=== PATIENT | female | born 1985 | race Two or more races ===

== ENCOUNTER 2019-08-01 10:55 | Emergency (ER) | payer MEDICAID, OTHER ==
[~2019-08-01] VITALS: Ht 167.6 cm; Wt 74.8 kg
[2019-08-01 11:06] VITALS: BP 115/81
[2019-08-01] MEDS ORDERED: TETANUS-DIPTH-ACEL PERTUSSIS 0.5ML SYR Tdap IM ONE (11:45)
[2019-08-01] MEDS ORDERED: LIDOCAINE 1% HCL (LOCAL ANESTH.) INJ 20ML MDV IJ ONE (11:45)
[2019-08-01] MEDS ORDERED: ACETAMINOPHEN 325 MG TAB PO ONE (12:15)
== END 2019-08-01 12:41 | disposition home or self-care (01) ==
LOC: ER 10:55 → EDBD 10:55 → ER 12:41
DX: S01.81XA Laceration without foreign body of other part of head, initial encounter (principal); S01.01XA Laceration without foreign body of scalp, initial encounter; V43.52XA Car driver injured in collision with other type car in traffic accident, initial encounter; Y93.89 Activity, other specified; Y92.488 Other paved roadways as the place of occurrence of the external cause; Y99.8 Other external cause status
CPT/HCPCS: 12002; 12015; 70450; 90471; 90715; 99284; J2001; 12014; 12016

== ENCOUNTER 2019-08-03 12:47 | Emergency (ER) | payer MEDICAID ==
[~2019-08-03] VITALS: Ht 162.6 cm; Wt 69.4 kg
[2019-08-03 13:13] VITALS: BP 119/75
== END 2019-08-03 13:54 | disposition home or self-care (01) ==
LOC: ER 12:47
DX: S01.81XA Laceration without foreign body of other part of head, initial encounter (principal); S01.01XD Laceration without foreign body of scalp, subsequent encounter; X58.XXXD Exposure to other specified factors, subsequent encounter

== ENCOUNTER 2021-02-04 12:35 | Emergency (ER) | payer MEDICAID ==
[~2021-02-04] VITALS: Ht 162.6 cm; Wt 69.4 kg
[2021-02-04 13:30] VITALS: BP 130/80
[2021-02-04 14:08] LABS: Basophils # (auto) 0.1 10 ^3/uL (0-0.2); Basophils % (auto) 0.7 % (0.0-2.0); Eosinophils # (auto) 0.1 10 ^3/uL (0-0.8); Eosinophils % (auto) 0.8 % (0.0-7.0); Hematocrit 39.4 % (36.0-46.0); Hemoglobin 13.3 g/dL (12.2-16.2); Lymphocytes # (auto) 1.3 10 ^3/uL (0.4-5.4); Lymphocytes % (auto) 18.7 % (10.0-50.0); Mean Corpuscular Hemoglobin 31.5 pg (28.0-32.0); Mean Corpuscular Hgb Conc. 33.6 g/dL (32.0-36.0); Mean Corpuscular Volume 93.5 fL (80.0-100.0); Monocytes # (auto) 0.5 10 ^3/uL (0-1.3); Monocytes % (auto) 7.4 % (0.0-12.0); Neutrophils # (auto) 5.2 10 ^3/uL (1.6-8.6); Neutrophils % (auto) 72.4 % (37.0-80.0); Red Blood Cells 4.22 10^6/uL (4.0-5.20); Red Cell Distribution Width 13.7 % (11.8-14.3); White Blood Cell 7.2 10^3/uL (4.4-10.8)
[2021-02-04 14:33] LABS: Calcium 9.2 mg/dL (8.5-10.1); Potassium 3.9 mmol/L (3.5-5.1)
[2021-02-04 14:46] LABS: BUN/Creatinine Ratio 12.1
== END 2021-02-04 15:37 | disposition home or self-care (01) ==
LOC: ER 12:35
DX: F41.8 Other specified anxiety disorders (principal); R42 Dizziness and giddiness; R51.9 Headache, unspecified; R20.2 Paresthesia of skin; E03.9 Hypothyroidism, unspecified
CPT/HCPCS: 36415; 80048; 84443; 84484; 85025

== ENCOUNTER 2021-03-27 15:51 | Emergency (ER) | payer MEDICAID ==
[~2021-03-27] VITALS: Ht 162.6 cm; Wt 67.1 kg
[2021-03-27 16:06] VITALS: BP 122/69
[2021-03-27 16:28] LABS: Basophils # (auto) 0.1 10 ^3/uL (0-0.2); Basophils % (auto) 0.7 % (0.0-2.0); Eosinophils # (auto) 0.1 10 ^3/uL (0-0.8); Eosinophils % (auto) 1.5 % (0.0-7.0); Hematocrit 39.9 % (36.0-46.0); Hemoglobin 13.1 g/dL (12.2-16.2); Lymphocytes % (auto) 30.2 % (10.0-50.0); Mean Corpuscular Hemoglobin 29.6 pg (28.0-32.0); Mean Corpuscular Hgb Conc. 32.7 g/dL (32.0-36.0); Mean Corpuscular Volume 90.5 fL (80.0-100.0); Monocytes # (auto) 0.7 10 ^3/uL (0-1.3); Monocytes % (auto) 6.6 % (0.0-12.0); Neutrophils # (auto) 6.1 10 ^3/uL (1.6-8.6); Nucleated Red Blood Cells % 1.4 %; Red Blood Cells 4.41 10^6/uL (4.0-5.20); Red Cell Distribution Width 13.8 % (11.8-14.3)
[2021-03-27 16:45] LABS: Albumin 3.9 g/dL (3.4-5.0); Calcium 9.1 mg/dL (8.5-10.1)
[2021-03-27 16:52] LABS: BUN/Creatinine Ratio 16.7; Bilirubin, Total 0.2 mg/dL (0.2-1.0); Total Protein 8.1 g/dL (6.4-8.2)
== END 2021-03-27 17:57 | disposition home or self-care (01) ==
LOC: ER 15:51
DX: R07.89 Other chest pain (principal); F41.8 Other specified anxiety disorders; E78.5 Hyperlipidemia, unspecified; E03.9 Hypothyroidism, unspecified; F17.210 Nicotine dependence, cigarettes, uncomplicated
CPT/HCPCS: 36415; 80053; 84443; 84484; 85025; 93005

== ENCOUNTER 2021-07-13 12:49 | Emergency (ER) | payer SELFPAY ==
[~2021-07-13] VITALS: Ht 162.6 cm; Wt 72.6 kg
[2021-07-13 15:57] VITALS: BP 115/67
== END 2021-07-13 16:12 | disposition home or self-care (01) ==
LOC: ER 12:49
DX: S83.91XA Sprain of unspecified site of right knee, initial encounter (principal); F17.210 Nicotine dependence, cigarettes, uncomplicated; X58.XXXA Exposure to other specified factors, initial encounter; Y93.89 Activity, other specified; Y92.89 Other specified places as the place of occurrence of the external cause; Y99.8 Other external cause status
CPT/HCPCS: 73562

== ENCOUNTER 2022-01-03 11:06 | Emergency (ER) | payer MEDICAID ==
[~2022-01-03] VITALS: Ht 162.6 cm; Wt 83.9 kg
[2022-01-03] MEDS ORDERED: LORazepam 2MG/ML-1ML VIAL IV ONE (12:30)
[2022-01-03] MEDS ORDERED: SODIUM CHLORIDE 0.9% 1,000 ML IV ONE (12:30)
[2022-01-03 12:43] LABS: Basophils # (auto) 0.1 10 ^3/uL (0-0.2); Eosinophils # (auto) 0.1 10 ^3/uL (0-0.8); Mean Corpuscular Hemoglobin 26.3 pg (28.0-32.0); Monocytes # (auto) 0.5 10 ^3/uL (0-1.3); Neutrophils # (auto) 4.3 10 ^3/uL (1.6-8.6)
[2022-01-03 12:48] LABS: Basophils % (auto) 0.7 % (0.0-2.0); Eosinophils % (auto) 1.9 % (0.0-7.0); Hematocrit 26.5 % (36.0-46.0); Hemoglobin 8.4 g/dL (12.2-16.2); Lymphocytes # (auto) 2.5 10 ^3/uL (0.4-5.4); Lymphocytes % (auto) 33.2 % (10.0-50.0); Mean Corpuscular Hgb Conc. 31.9 g/dL (32.0-36.0); Mean Corpuscular Volume 82.5 fL (80.0-100.0); Monocytes % (auto) 6.7 % (0.0-12.0); Neutrophils % (auto) 57.5 % (37.0-80.0); Nucleated Red Blood Cells % 0.1 %; Red Blood Cells 3.21 10^6/uL (4.0-5.20); Red Cell Distribution Width 16.2 % (11.8-14.3); White Blood Cell 7.4 10^3/uL (4.4-10.8)
[2022-01-03 13:03] LABS: Albumin 3.7 g/dL (3.4-5.0); Calcium 8.5 mg/dL (8.5-10.1); Potassium 4.7 mmol/L (3.5-5.1)
[2022-01-03 13:05] LABS: Alcohol, Urine < 3.0 mg/dL (0-10); Amphetamine Screen, Urine NEGATIVE (NEGATIVE); Barbiturate Scree,Urine NEGATIVE (NEGATIVE); Benzodiazephine Screen, Urine POSITIVE (NEGATIVE); Cannabinoid Screen, Urine NEGATIVE (NEGATIVE); Cocaine Screen, Urine NEGATIVE (NEGATIVE); Opiate Scree,Urine NEGATIVE (NEGATIVE); Phencyclidine Screen, Urine NEGATIVE (NEGATIVE)
[2022-01-03 13:06] LABS: BUN/Creatinine Ratio 18.9
[2022-01-03 13:10] LABS: Bilirubin, Total 0.2 mg/dL (0.2-1.0); Total Protein 7.2 g/dL (6.4-8.2)
[2022-01-03 13:21] LABS: Urine Bacteria NONE SEEN /hpf (None Seen); Urine Blood 3+ /uL (Negative); Urine Specific Gravity 1.021 (1.001-1.035); Urine WBC 1 /hpf (0 - 5)
[2022-01-03] MEDS ORDERED: NITR-87 PO (13:54)
[2022-01-03 17:30] VITALS: BP 125/66
== END 2022-01-03 17:34 | disposition home or self-care (01) ==
LOC: ER 11:06
DX: R42 Dizziness and giddiness (principal); N39.0 Urinary tract infection, site not specified; F41.9 Anxiety disorder, unspecified
CPT/HCPCS: 36415; 80053; 80307; 81001; 81025; 85025

== ENCOUNTER 2022-04-10 09:08 | Emergency (ER) | payer MEDICAID ==
[~2022-04-10] VITALS: Ht 162.6 cm; Wt 88.0 kg
[~2022-04-10 09:08] MED LIST: NITR-87 PO
[2022-04-10] MEDS ORDERED: HYDR-4902 PO (09:42)
[2022-04-10] MEDS ORDERED: LIDOCAINE 1% HCL (LOCAL ANESTH.) INJ 20ML MDV IJ ONE (09:45)
[2022-04-10] MEDS ORDERED: MORPHINE SULFATE 4 MG/ML SYR/VIAL IM ONE (09:45)
[2022-04-10] MEDS ORDERED: ONDANSETRON ODT 4 MG TAB PO ONE (09:45)
[2022-04-10] MEDS ORDERED: IBUPROFEN 600 MG TAB PO ONE (11:00)
[2022-04-10] MEDS ORDERED: CYCL-839 PO (11:40)
[2022-04-10] MEDS ORDERED: IBUP600T28 PO (11:40)
[2022-04-10 11:49] VITALS: BP 123/70
== END 2022-04-10 12:21 | disposition home or self-care (01) ==
LOC: ER 09:08
DX: S62.102A Fracture of unspecified carpal bone, left wrist, initial encounter for closed fracture (principal); F17.210 Nicotine dependence, cigarettes, uncomplicated; W18.39XA Other fall on same level, initial encounter; Y93.89 Activity, other specified; Y92.89 Other specified places as the place of occurrence of the external cause; Y99.8 Other external cause status
CPT/HCPCS: 29125; 73100; 73110; 96372; 99283; J2001; Q0162

== ENCOUNTER 2022-04-12 09:47 | Emergency (ER) | payer MEDICAID ==
[~2022-04-12] VITALS: Ht 162.6 cm; Wt 86.5 kg
[~2022-04-12 09:47] MED LIST changes: +CYCL-839 PO; +IBUP600T28 PO
[2022-04-12 11:32] VITALS: BP 103/43
[2022-04-12] MEDS ORDERED: HYDROcodone-ACET 5/325MG TAB PO ONE (12:30)
== END 2022-04-12 13:05 | disposition home or self-care (01) ==
LOC: ER 09:47
DX: M25.532 Pain in left wrist (principal); F17.210 Nicotine dependence, cigarettes, uncomplicated; Z88.6 Allergy status to analgesic agent

== ENCOUNTER 2023-07-11 21:05 | Inpatient (IN) | payer MEDICAID ==
[~2023-07-11] VITALS: Ht 162.6 cm; Wt 83.9 kg
[~2023-07-11 21:05] MED LIST changes: +IBUP1TAB5 PO; -IBUP600T28 PO
[2023-07-11] MEDS ORDERED: LIDOCAINE 2%HCL (LOCAL ANESTH.) INJ 20ML MDV IJ PRN (21:15)
[2023-07-11] MEDS ORDERED: miSOPROStol 100 mcg TAB SL PRN (21:15)
[2023-07-11] MEDS ORDERED: miSOPROStol 100 mcg TAB PR PRN (21:15)
[2023-07-11] MEDS ORDERED: CARBOPROST TROMETHAMINE 250 MCG/1ML VIAL IM PRN (21:15)
[2023-07-11] MEDS ORDERED: MORPHINE SULFATE INJ 2 MG/ml SYRG IV PRN (21:15)
[2023-07-11] MEDS ORDERED: ONDANSETRON HCL 4 MG/2 ML VIAL IV PRN (21:15)
[2023-07-11] MEDS ORDERED: NITROGLYCERIN 0.4 MG SL TAB SL PRN (21:15)
[2023-07-11] MEDS ORDERED: BUTORPHANOL TARTRATE 2 MG/1 ML VIAL IV PRN ×2 (21:15)
[2023-07-11 21:58] LABS: Basophils # (auto) 0.1 10 ^3/uL (0-0.2); Basophils % (auto) 0.6 % (0.0-2.0); Eosinophils # (auto) 0 10 ^3/uL (0-0.8); Eosinophils % (auto) 0.4 % (0.0-7.0); Hematocrit 31.5 % (36.0-46.0); Hemoglobin 9.7 g/dL (12.2-16.2); Lymphocytes # (auto) 2.7 10 ^3/uL (0.4-5.4); Lymphocytes % (auto) 30.8 % (10.0-50.0); Mean Corpuscular Hemoglobin 23.5 pg (28.0-32.0); Mean Corpuscular Volume 75.9 fL (80.0-100.0); Monocytes # (auto) 0.5 10 ^3/uL (0-1.3); Monocytes % (auto) 5.4 % (0.0-12.0); Neutrophils # (auto) 5.5 10 ^3/uL (1.6-8.6); Neutrophils % (auto) 62.8 % (37.0-80.0); Nucleated Red Blood Cells % 0.1 %; Red Blood Cells 4.15 10^6/uL (4.0-5.20); Red Cell Distribution Width 17.9 % (11.8-14.3); White Blood Cell 8.8 10^3/uL (4.4-10.8)
[2023-07-11 22:10] LABS: Urine Bacteria FEW /hpf (None Seen); Urine Blood Negative /uL (Negative); Urine Clarity Clear (Clear); Urine Color Colorless (Yellow); Urine Protein, UAD Negative (Negative); Urine Specific Gravity 1.004 (1.001-1.035); Urine Urobilinogen Normal (Negative); Urine WBC 1 /hpf (0 - 5); Urine pH 5.5 (5.0-9.0)
[2023-07-11] MEDS ORDERED: LACTATED RINGER'S 1,000 ML IV ONE (22:15)
[2023-07-11 22:18] LABS: Alanine Aminotransferase 13 U/L (7-40); Alkaline Phosphatase 161 U/L (46-116); Anion Gap 7 (5-15); Aspartate Aminotransferase 23 U/L (13-40); BUN/Creatinine Ratio 10.3 (10.0-20.0); Blood Urea Nitrogen 6 mg/dL (9-23); Carbon Dioxide 21 mmol/L (20-30); Chloride 109 mmol/L (98-107); Glucose 80 mg/dL (74-106); Potassium 3.7 mmol/L (3.5-5.1); Sodium 137 mmol/L (136-145)
[2023-07-11 22:19] LABS: Bilirubin, Total 0.5 mg/dL (0.2-1.0); INR 0.95 (0.9-1.15); Partial Thromboplastin Time 24.4 SEC (24.5-34.5); Total Protein 6.7 g/dL (5.7-8.2)
[2023-07-11] MEDS: LACTATED RINGER'S 1,000 ML IV SCH (22:19)
[2023-07-11] MEDS: DERMOPLAST 60ML BOTTLE TOP PRN (22:20)
[2023-07-11] MEDS: WITCH HAZEL-GLYCERIN PAD TOP PRN (22:20)
[2023-07-11] MEDS: PHISODERM TOP SOLN 240ML BTL TOP PRN (22:20)
[2023-07-11 22:21] LABS: Amphetamine Screen, Urine Neg (NEGATIVE)
[2023-07-11] MEDS: miSOPROStol 50 MCG per PRE-CUT 1/2 TAB PO PRN (22:21)
[2023-07-11 22:22] LABS: Barbiturate Scree,Urine Neg (NEGATIVE); Benzodiazephine Screen, Urine Neg (NEGATIVE); Cannabinoid Screen, Urine Neg (NEGATIVE); Cocaine Screen, Urine Neg (NEGATIVE); Opiate Scree,Urine Neg (NEGATIVE); Phencyclidine Screen, Urine Neg (NEGATIVE)
[2023-07-12] MEDS ORDERED: TERBUTALINE SULFATE 1 MG/ML 1ML VIAL SC PRN (00:30)
[2023-07-12 01:19] LABS: Protein, Urine < 6.0 mg/dL (0.0-11.9)
[2023-07-12 01:21] LABS: Creatinine, Urine 26.52 mg/dL (30.0-125.0); Urine Protein/Creatinine Ratio 0.23
[2023-07-12] MEDS: TERBUTALINE SULFATE 1 MG/ML 1ML VIAL SC ONE (02:43)
[2023-07-12] MEDS: LACTATED RINGER'S 1,000 ML IV ONE (02:44)
[2023-07-12] MEDS: ROPIVACAINE HCL 200 ML ONE (02:45)
[2023-07-12] MEDS: ePHEDrine SULFATE 50 MG/ML AMP IV ONE (03:22)
[2023-07-12] MEDS: LACT. RINGERS/OXYTOCIN 20UNITS 1,000 ML IV SCH (04:50)
[2023-07-12] MEDS ORDERED: DIPHENOXYLATE W/ATROPINE 2.5 MG TAB PO PRN (06:00)
[2023-07-12] MEDS: METHYLERGONOVINE MALEATE 0.2 MG/ML AMP IM PRN (07:27)
[2023-07-12] MEDS: LACT. RINGERS/OXYTOCIN 20UNITS 500 ML IV ONE ×2 (07:28→07:55)
[2023-07-12] MEDS ORDERED: ACETAMINOPHEN 325 MG TAB PO PRN (07:45)
[2023-07-12] MEDS ORDERED: ONDANSETRON ODT 4 MG TAB PO PRN (07:45)
[2023-07-12] MEDS: ceFAZolin 2 GM/D5W50ml 50 ML IV ONE (07:47)
[2023-07-12] MEDS: IBUPROFEN 600 MG TAB PO PRN (10:16)
[2023-07-12 10:30] VITALS: PULSE 71; RESP 18
[2023-07-12 11:07] VITALS: BP 109/51; PULSE 94; RESP 18; TEMP 98.1; O2SAT 96
[2023-07-12 15:10] VITALS: BP 93/51; PULSE 72; RESP 15; TEMP 98.1; O2SAT 96
[2023-07-12] MEDS: ceFAZolin 1GM/50ML 50 ML IV SCH (16:23)
[2023-07-12] MEDS ORDERED: PREN-96 PO (16:26)
[2023-07-12] MEDS ORDERED: ASCO500T11 PO (16:26)
[2023-07-12] MEDS ORDERED: IBU600T PO (16:26)
[2023-07-12] MEDS ORDERED: DOCU-94 PO (16:26)
[2023-07-12] MEDS ORDERED: FER325T PO (16:26)
[2023-07-12 18:28] VITALS: BP 98/57; PULSE 67; RESP 16; TEMP 98.4; O2SAT 98
[2023-07-12 19:03] VITALS: TEMP 98.4
[2023-07-12 23:00] VITALS: BP 101/66; PULSE 80; RESP 18; TEMP 98.1; O2SAT 100
[2023-07-13 03:00] VITALS: BP 91/51; PULSE 69; RESP 18; TEMP 97.8; O2SAT 100
[2023-07-13 06:24] LABS: Basophils # (auto) 0 10 ^3/uL (0-0.2); Eosinophils # (auto) 0.1 10 ^3/uL (0-0.8); Lymphocytes # (auto) 2.2 10 ^3/uL (0.4-5.4); Mean Corpuscular Hemoglobin 24.2 pg (28.0-32.0); Monocytes # (auto) 0.5 10 ^3/uL (0-1.3); Red Cell Distribution Width 18.2 % (11.8-14.3)
[2023-07-13 06:26] LABS: Basophils % (auto) 0.3 % (0.0-2.0); Eosinophils % (auto) 0.7 % (0.0-7.0); Hematocrit 29.3 % (36.0-46.0); Hemoglobin 9.1 g/dL (12.2-16.2); Lymphocytes % (auto) 25.6 % (10.0-50.0); Mean Corpuscular Hgb Conc. 31.1 g/dL (32.0-36.0); Mean Corpuscular Volume 77.8 fL (80.0-100.0); Monocytes % (auto) 6.2 % (0.0-12.0); Neutrophils # (auto) 5.8 10 ^3/uL (1.6-8.6); Neutrophils % (auto) 67.2 % (37.0-80.0); Red Blood Cells 3.76 10^6/uL (4.0-5.20); White Blood Cell 8.6 10^3/uL (4.4-10.8)
[2023-07-13 07:00] VITALS: BP 90/52; PULSE 75; RESP 16; TEMP 97.7; O2SAT 97
[2023-07-13 08:06] LABS: RPR Non Reactive (Non Reactive)
[2023-07-13 11:00] VITALS: BP 100/68; PULSE 73; RESP 16; TEMP 98.6; O2SAT 97
[2023-07-13 13:11] VITALS: BP 102/64; PULSE 75; RESP 16; TEMP 97.8; O2SAT 98
[2023-07-17 19:06] LABS: Treponema pallidum Ab (FTA-Ab) Non Reactive (Non Reactive)
== END 2023-07-13 13:11 | disposition home or self-care (01) | DRG 560 ==
LOC: UNDOADMIN 21:05 → LDRP 21:05
PROVIDERS: ADMIT Obstetrics & Gynecology; ATTEND Obstetrics & Gynecology
PROC: 10E0XZZ Delivery of Products of Conception, External Approach (ICD-10-PCS; principal; 2023-07-12)
PROC: 3E033VJ Introduction of Other Hormone into Peripheral Vein, Percutaneous Approach (ICD-10-PCS; 2023-07-12)
PROC: 3E0R3BZ Introduction of Anesthetic Agent into Spinal Canal, Percutaneous Approach (ICD-10-PCS; 2023-07-12)
PROC: 00HU33Z Insertion of Infusion Device into Spinal Canal, Percutaneous Approach (ICD-10-PCS; 2023-07-12)
DX: O26.643 Intrahepatic cholestasis of pregnancy, third trimester (principal); Z37.0 Single live birth; D50.9 Iron deficiency anemia, unspecified; Z3A.37 37 weeks gestation of pregnancy; O76 Abnormality in fetal heart rate and rhythm complicating labor and delivery; O99.02 Anemia complicating childbirth
CPT/HCPCS: 36415; 59025; 59200; 59409; 62282; 80053; 80307; 81001; 82570; 84156; 84550; 85025; 85610; 85730; 86592; 86850; 86900; 86901; 87086; 94760; 94762; 96360; 96361; 96365; 96366; 96372; 96374; 96375; G0378; J2590

== ENCOUNTER 2024-11-29 07:10 | Emergency (ER) | payer MEDICAID ==
[~2024-11-29] VITALS: Ht 162.6 cm; Wt 68.3 kg
[~2024-11-29 07:10] MED LIST changes: +ASCO500T11 PO; -CYCL-839 PO; +DOCU-94 PO; +FER325T PO; +IBU600T PO; -IBUP1TAB5 PO; -NITR-87 PO; +PREN-96 PO
[2024-11-29 07:13] VITALS: BP 101/70; RESP 16; TEMP 97.7; O2SAT 98
--- NOTE | 2024-11-29 07:30 | ED.PDOC ---
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 PT HAD PILL 3 WEEKS AGO AND SHE STARTED HAVING VAGINAL BLEEDING WITH INCREASING BETA-HCG 3 DAYS AGO. PT WAS IN THIS ER 2 DAYS AGO FOR CHECK UP HER DUE TO HER BETA-HCG INCREASED. PT HAD BLOOD TEST AND OB US TEST. I CONSULTED ABOUT PATIENT'S BLOOD TEST AND US REPORTS. PT WAS GIVEN AN PILL CYTOTEC 800MCG BY AND INSTRUCTED PT TO F/U ER TODAY FOR RECHECK BETA-HCG TEST. PT STATES SHE TOOK THE PILLS AND STARTED VAGINAL BLEEDING AND PASSED TISSUE YESTERDAY AND STOPPED TODAY. PATIENT HAS NO FURTHER COMPLAINTS AT THIS TIME AND OTHERWISE DENIES SOB, CHEST PAIN, VAGINAL BLEEDING, N/V, FEVER, CHILLS, OR DYSURIA AND OTHER COMPLAINTS. NO OTHER SYMPTOMS REPORTED AT THIS TIME OF CARE. PATIENT IS ALERT, ORIENTED X 4, AND HAS STEADY GAIT. Chief Complaint: Time Seen by MD: 07:20 Reviewed Notes: Nurses Notes, Medications, Allergies Allergies: Coded Allergies: NO KNOWN ALLERGIES (Unverified , 11/27/24) Information Source: Patient Mode of Arrival: Ambulatory Timing: Days Prehospital treatment: None Severity: Moderate Onset Of Mass/Bleeding: Spontaneous Associated Signs and Symptoms: Vaginal Bleeding, Other (BETA-HCG RECHECK ) Past Medical History PAST MEDICAL HISTORY: Denies Surgical History: Denies all surgeries CERTIFIED PHLEBOTOMY TECHNICIAN History: No Pertinent CERTIFIED PHLEBOTOMY TECHNICIAN History Family History Family History: Reviewed,noncontributory to illness Social History Smoker: Non-Smoker Alcohol: Denies ETOH Use Drugs: Denies Drug Use Lives In: Home Constitutional: denies: chills, diaphoresis, fatigue, fever, malaise, sweats, weakness, others EENTM: denies: blurred vision, double vision, ear bleeding, ear discharge, ear drainage, ear pain, ear ringing, eye pain, eye redness, hearing loss, mouth pain, mouth swelling, nasal discharge, nose bleeding, nose congestion, nose pain, photophobia, tearing, throat pain, throat swelling, voice changes, others Respiratory: denies: cough, hemoptysis, orthopnea, SOB at rest, shortness of breath, SOB with excertion, stridor, wheezing, others Cardiovascular: denies: chest pain, dizzy spells, diaphoresis, Dyspnea on exertion, edema, irregular heart beat, left arm pain, lightheadedness, palpitations, PND, syncope, others Gastrointestinal: denies: abdomen distended, abdominal pain, blood streaked bowels, constipated, diarrhea, dysphagia, difficulty swallowing, hematemesis, melena, nausea, poor appetite, poor fluid intake, rectal bleeding, rectal pain, vomiting, others Genitourinary: reports: abnormal vagina bleeding, ; denies: burning, dyspareunia, dysuria, flank pain, frequency, hematuria, incontinence, pain, vagina discharge, urgency, others Neurological: denies: dizziness, fainting, headache, left sided numbness, left sided weakness, numbness, paresthesia, pre-existing deficit, right sided numbn ess, right sided weakness, seizure, speech problems, tingling, tremors, weakness, others Musculoskeletal: denies: back pain, gout, joint pain, joint swelling, muscle pain, muscle stiffness, neck pain, others Integumetry: denies: bruises, change in color, change in hair/nails, dryness, laceration, lesions, lumps, rash, wounds, others Allergic/Immunocompromised: denies: Difficulty Healing, Frequent Infections, Hives, Itching, others Hematologic/Lymphatic: denies: anemia, blood clots, easy bleeding, easy bruising, swollen glands, others Endocrine: denies: excessive hunger, excessive sweating, excessive thirst, excessive urination, flushing, intolerance to cold, intolerance to heat, unexplained weight gain, unexplained weight loss, others Psychiatric: denies: anxiety, bipolar disorder, depression, hopeless, panic disorder, schizophrenia, sleepless, suicidal, others All Other Systems: Reviewed and Negative Physical Exam General Appearance: Mild Distress, Normal HEENT: Normal ENT Inspection, PERRL/EOMI, Pharynx Normal, TMs Normal Neck: Full Range of Motion, Non-Tender, Normal, Normal Inspection Respiratory: Chest Non-Tender, Lungs Clear, No Accessory Muscle Use, No Respiratory Distress, Normal Breath Sounds Cardiovascular: No Edema, No JVD, No Murmur, No Gallop, Normal Peripheral Pulses, Regular Rate/Rhythm Breast Exam: Deferred Gastrointestinal: No Organomegaly, Non Tender, No Pulsatile Mass, Normal Bowel Sounds, Soft Genitalia: Deferred Pelvic: Deferred Rectal: Deferred Extremities: No calf tenderness, Normal capillary refill, Normal inspection, Normal range of motion, Non-tender, No pedal edema Musculoskeletal : Apperance: Normal Neurologic: Alert, center receptionist II-XII nml as Tested, No Motor Deficits, Normal Affect, Normal Mood, No Sensory Deficits Cerebellar Function: Normal Reflexes: Normal Skin: Dry, Normal Color, Warm Peripheral Pulses: 2+ carotid (R), 2+ carotid (L) Lymphatic: No Adenopathy Was a procedure done? Was a procedure done?: No Differential Diagnosis (CERTIFIED PHLEBOTOMY TECHNICIAN) Vaginal Bleeding: - Threatened, Ectopic , UTI, Vaginitis Vaginal Discharge: UTI X-Ray, Labs, Meds, VS Vital Signs Date Time Temp Pulse Resp B/P (MAP) Pulse Ox O2 Delivery O2 Flow Rate FiO2 11/29/24 07:58 11/29/24 07:38 71 11/29/24 07:13 97.7 82 16 101/70 98 97.7 Lab Test 11/29/24 07:51 11/29/24 07:33 Range/Units Urine Color Light-orange Yellow Urine Clarity Turbid H Clear Urine pH 5.5 5.0-9.0 Urine Specific [place] 1.020 1.001-1.035 Urine Protein Trace H Negative Urine Ketones Negative Negative Urine Blood 3+ H Negative /uL Urine Nitrite Negative Negative Urine Bilirubin Negative Negative Urine Urobilinogen Normal Negative mg/dL Urine Leukocyte Esterase 2+ Negative /uL Urine RBC 106 0 - 4 /hpf Urine Microscopic WBC 3 0-5 /HPF Urine Squamous Epithelial Cells Many <5 /hpf Urine Bacteria Few H None Seen /hpf Urine Mucus Few None Seen Urine Glucose Normal Normal mg/dL Beta HCG, Quantitative 4030.6 H 1.5-4.2 mIU/mL X-Ray, Labs, Meds, VS Comment EXTERNAL MEDICAL RECORDS REVIEWED: [NONE] INDEPENDENT HISTORIANS: [NONE] SOCIAL DETERMINANTS OF HEALTH: [NONE] LABS ORDERED: BETA-HC.6 DECREASED FROM 2 DAYS AGO 28130 REVIEWED AND INTERPRETED RESULTS: NONE IMAGING ORDERED: NONE TREATMENTS ORDERED: NONE PROCEDURES PERFORMED: NONE CRITICAL CARE TIME: NONE I HAVE DISCUSSED THE PATIENT WITH THE ATTENDING PHYSICIAN, DR. COLBY, AND HE AGREES WITH THE PATIENT'S PLAN OF CARE AND DISPOSITION. I TALKED TO DR. HARTMAN AT 0842, AND REPORTED SECOND BETA HCG LEVEL OF 4030 WHICH DECREASED SINCE LAST VISIT. DR. HARTMAN REPORTED THAT WITH DECREASED BETA HCG LEVELS, PATIENT IS ABLE TO BE DISCHARGED HOME. PATIENT IS TO REPEAT BETA HCG IN 2-4 DAYS. IF VAGINAL BLEEDING OR ABDOMINAL PAIN INCREASES, PATIENT SHOULD COME TO THE ER FOR FURTHER EVALUATION. PT HAS A MEETING ON MONDAY WITH FISH [facility]E TECHNICIAN, AND BETA HCG LEVEL WILL BE PROVIDED THEN. SHARED DECISION MAKING: DISCUSSED WITH PATIENT THAT THEIR WORKUP WAS NORMAL. PATIENT INSTRUCTED TO FOLLOW UP WITH PRIMARY CARE PROVIDER IN 1-2 DAYS FOR RE- EVALUATION OF SYMPTOMS. PATIENT VERBALIZES UNDERSTANDING TO RETURN TO ED FOR NEW OR WORSENING SYMPTOMS OR IF FOLLOW UP WITH PCP CANNOT BE OBTAINED. PATIENT FEELS COMFORTABLE GOING HOME AT THIS TIME. ALL QUESTIONS ADDRESSED AT TIME OF DISCHARGE. Images Reviewed?: Images reviewed and evaluated by me Time of 1ST Reevaluation: 08:56 Reevaluation 1ST: Improved Patient Education/Counseling: Diagnosis, Treatment, Need For Follow Up Family Education/Counseling: Diagnosis, Treatment, No Family Present Medical Screening: No EMC Exist At This Time Departure 1 Departure Time of Disposition: 08:56 Impression: Primary Impression: Laboratory examination Additional Impression: Incomplete Disposition: 01 HOME / SELF CARE / HOMELESS Condition: Stable Additional Instructions: FOLLOW-UP WITH PCP IN 1 TO 2 DAYS. TAKE MEDICATIONS PRESCRIBED. RETURN TO ED FOR ANY NEW OR WORSENING SYMPTOMS. Discharged With: Self Critical Care Note Critical Care Time?: No Stability Stability form required: No Heart Score Heart Score: Heart Score Response (Comments) Value History N/A 0 EKG N/A 0 Age N/A 0 Risk Factors N/A 0 Troponin N/A 0 Total 0 I personally scribed for JOSHUA REYNA PA ([email or web address]) on 11/29/24 at 07:30. Electronically submitted by Moraima Bullard ([employer]). I personally scribed for EVELYNE REYNAA PA ([email or web address]) on 11/29/24 at 07:38. Electronically submitted by Moraima Bullard ([employer]). I personally scribed for MARIBELLEVELYNE KiddA PA ([email or web address]) on 11/29/24 at 08:04. Electronically submitted by Moraima Bullard ([employer]). I personally scribed for EVELYNE REYNAA PA ([email or web address]) on 11/29/24 at 08:18. Electronically submitted by Moraima Bullard (HEATH[employer]). I personally scribed for JOSHUA REYNA ([email or web address]) on 11/29/24 at 08:43. Electronically submitted by Moraima Bullard (HEATHER). I personally scribed for JOSHUA REYNA ([email or web address]) on 11/29/24 at 08:50. Electronically submitted by Moraima Bullard (HEATHER). JOSHUA REYNA Nov 29, 2024 07:30
[2024-11-29 08:07] LABS: Urine Protein, UAD TRACE (Negative)
== END 2024-11-29 08:56 | disposition home or self-care (01) ==
LOC: ER 07:10 → MERGE 07:10 → ER 08:50
DX: O03.4 Incomplete spontaneous abortion without complication (principal); Z3A.01 Less than 8 weeks gestation of pregnancy; Z00.00 Encounter for general adult medical examination without abnormal findings
CPT/HCPCS: 36415; 81001; 84702